=== PATIENT | female | born 1990 | race Caucasian/White ===

== ENCOUNTER 2017-07-01 13:30 | Emergency (ER) | payer OTHER ==
[~2017-07-01] VITALS: Ht 160 cm; Wt 99.8 kg
[~2017-07-01 13:30] MED LIST: DILANTIN100 MG PO; SEIZURE MEDS
[2017-07-01 14:15] LABS: ABSOLUTE EOSINOPHILS 0.3 thou/uL (0.0-0.7); ABSOLUTE LYMPHOCYTES 2.3 thou/uL (0.8-5.3); ABSOLUTE MONOCYTES 0.6 thou/uL (0.0-1.2); ABSOLUTE NEUTROPHILS 4.6 thou/uL (1.6-8.1); BASOPHILS 0.6 %; EOSINOPHILS 3.3 %; HEMOGLOBIN 14.4 gm/dL (12.0-15.0); LYMPHOCYTES 28.8 %; MCH 31.3 pg (26.0-34.0); MCHC 35.1 g/dL (28.0-37.0); MCV 89.2 fL (80.0-100.0); MONOCYTES 7.8 %; NUCLEATED RBCS 0 /100WBC; PLATELET COUNT* 320 thou/uL (150-400); POLYS 59.5 %; RBC 4.59 mil/uL (4.20-5.00); RDW-CV 13.2 % (10.5-14.5); WBC 7.8 thou/uL (4.0-11.0)
[2017-07-01 14:25] LABS: CALCIUM 9.2 mg/dL (8.5-10.1); CREATININE 0.9 mg/dL (0.6-1.3); POTASSIUM 4.3 mmol/L (3.5-5.1)
[2017-07-01 14:30] LABS: ALBUMIN 4.1 g/dL (3.4-5.0); TOTAL BILIRUBIN 0.3 mg/dL (<0.1-1.0); TOTAL PROTEIN 7.8 g/dL (6.4-8.2)
[2017-07-01] MEDS ORDERED: IBUPROFEN 800800 MG PO (16:06)
[2017-07-01 16:08] VITALS: BP 125/64
== END 2017-07-01 16:09 | disposition home or self-care (01) ==
LOC: M.ERS 13:30
PROVIDERS: Nurse Practitioner Family
DX: R51 Headache (principal); R11.0 Nausea

== ENCOUNTER → 2017-11-24 | Outpatient (CLI) | payer OTHER ==
[~2017-11-24] MED LIST changes: +IBUPROFEN 800800 MG PO
== END ==
LOC: M.MRI 11-10 09:35
DX: M51.26 Other intervertebral disc displacement, lumbar region (principal)

== ENCOUNTER 2019-03-23 22:37 | Emergency (ER) | payer OTHER ==
[~2019-03-23] VITALS: Ht 160 cm; Wt 74.8 kg
[2019-03-23] MEDS ORDERED: XANAX (22:45)
[2019-03-23 23:08] LABS: INFLUENZA A ANTIGEN Negative (Negative); INFLUENZA B ANTIGEN Negative (Negative)
[2019-03-23] MEDS ORDERED: HYDROCODON-ACE1 EAC7 PO (23:18)
[2019-03-23] MEDS ORDERED: ZOFRAN ODT4 MG PO (23:18)
[2019-03-23 23:33] VITALS: BP 113/55
== END 2019-03-23 23:34 | disposition home or self-care (01) ==
LOC: M.ERS 22:37
PROVIDERS: Emergency Medicine
DX: J02.0 Streptococcal pharyngitis (principal)

== ENCOUNTER 2019-05-02 18:51 | Emergency (ER) | payer OTHER ==
[~2019-05-02] VITALS: Ht 160 cm; Wt 72.6 kg
[~2019-05-02 18:51] MED LIST changes: +HYDROCODON-ACE1 EAC7 PO; +XANAX; +ZOFRAN ODT4 MG PO
[2019-05-02] MEDS ORDERED: ZOLOFT25 MG PO (19:09)
[2019-05-02] MEDS ORDERED: CLINDAMYCIN HC150 MG PO (19:47)
[2019-05-02] MEDS ORDERED: HYDROCODON-ACE1 EAC8 PO (20:29)
[2019-05-02 20:35] VITALS: BP 152/81
== END 2019-05-02 20:35 | disposition home or self-care (01) ==
LOC: M.ERS 18:51
DX: L03.011 Cellulitis of right finger (principal)